=== PATIENT | male | born 1990 | race Hispanic/Latino ===

== ENCOUNTER 2017-02-10 00:51 | Emergency (ER) | payer OTHER ==
[~2017-02-10 00:51] MED LIST: NOMED
[2017-02-10 01:12] VITALS: BP 133/71; PULSE 86; RESP 14; O2SAT 95
[2017-02-10] MEDS ORDERED: 0.9% Sodium Chloride 1,000 ML IV ONE (01:50)
[2017-02-10] MEDS ORDERED: Ondansetron 2 mg/mL 2 mL Inj IVPUSH ONE (01:50)
--- NOTE | 2017-02-10 01:58 | ED.REPORT ---
HPI-General Illness Date of Service Feb 10, 2017 ED Provider: Raz Love MD Palomo Funes is a 26 year old man with a PMH of appendicitis who presents with a 6 hour history of nausea vomiting and diarrhea following ingestion of reheated left over stir downey provided by his boss at work. He states that minutes after consuming the stir downey he began to feel nauseous, and within an hour was acutely suffering from diarrhea and vomiting. He states that prior to this he was in his usual state of health. Nursing Notes Chief Complaint: General Complaint Nursing Notes Reviewed: Yes Allergies: Coded Allergies: No Known Allergies (Unverified Allergy, Unknown, 02/10/17) Scheduled PRN Ondansetron ODT (Zofran ODT) 4 Mg Tablet 4 MG PO Q4H PRN PRN For Nausea Miscellaneous Medications No Historical Medication (No Historical Medication) Ea General Time Seen by MD: 01:45 Chief Complaint Diarrhea, Vomiting Hx Obtained From: Patient Sudden in Onset?: Yes Onset Occurred: 5 - 8 hours ago Symptom Duration: Since onset Context: Occurred at: Workplace Recent Healthcare: No recent doctor visit Similar Sx Previous: No Past Medical History Past Medical History Appendicitis with appendectomy Review of Systems Full Review of Systems GI: Reports: Diarrhea, Nausea, Vomiting Complete sys rev & neg: except as marked. Physical Exam Gen: A/O x3 pleasant cooperative male in mild acute distress secondary to GI upset Neck: Supple, Full ROM, no lymphadenopathy HEENT: PERRL, EOMI, no scleral icterus CV: RRR, no murmurs rubs or gallops Resp: Lungs CTA BL, no wheezing rales or rhonchi Abdomen: Soft, mildly tender to palpation in epigastric region, hyperactive BS throughout, no organomegally Extr: No cyanosis clubbing or edema Neuro: CN 2-12 grossly intact, no focal neurologic deficit. Vital Signs Vital Signs Date Time Temp Pulse Resp B/P Pulse Ox O2 Delivery O2 Flow Rate FiO2 02/10/17 02:54 79 16 125/73 98 Room Air 02/10/17 01:12 37.1 86 14 133/71 95 Initial VS: Reviewed, Vital signs normal Re-Eval/Medical Decision Med Decision/Clinical Course Patient with abrupt onset N/V/D following consumption of reheated left over stir downey at work. Likely food poisoning from pre-formed toxins. Patient given Zofran, Immodium, and 1 L NS resulting in improvement of symptoms. Patient was discharged home with follow up instructions and return precautions. Counseled Regarding: Diagnosis, Need for follow-up, When/why to return to ED Discharge & Departure Shift Change Sign-Out Patient Care Transferred: No Discussed Complaint(s): Yes Response to Therapy: Improved Primary Impression: Food poisoning Disposition: Home Discharge Condition All VS Reviewed: Yes Condition: Stable Patient Instructions: Food Poisoning (ED) Additional Instructions: It is most likely that you are suffering from food poisoning from the stir downey you consumed at work. The good news is that food poisoning symptoms are generally quick to come on and quick to leave. I suspect that you will be feeling much better tomorrow. However, if you are not feeling better in the next 2-3 days the stir downey may have been a false lead and you could have contracted a viral gastro-enteritis, which is a virus that affects the digestive tract. Either way you should drink plenty of water and get some rest until you feel better. If your symptoms fail to improve in 72 hours, your diarrhea or vomit becomes bloody or there is so much of it that you feel dehydrated please go to the urgent care or return to the ER for further evaluation. Referrals: NOPCP (PCP) Attending Statement The patient was seen and examined together with Dr. Luke Hilliard and I agree with the history, exam and plan as outlined in the note above. Luke Hilliard DO Feb 10, 2017 01:58 Raz Love MD Feb 10, 2017 05:35
[2017-02-10] MEDS ORDERED: ONDA4TAB9 PO (02:47)
[2017-02-10 02:54] VITALS: BP 125/73; PULSE 79; RESP 16; O2SAT 98
== END 2017-02-10 02:49 | disposition home or self-care (01) ==
LOC: SED 00:51
DX: T62.91XA Toxic effect of unspecified noxious substance eaten as food, accidental (unintentional), initial encounter (principal); R11.2 Nausea with vomiting, unspecified; R19.7 Diarrhea, unspecified; Y92.59 Other trade areas as the place of occurrence of the external cause; Y99.8 Other external cause status
CPT/HCPCS: 96361; 96374; 99284; J2405; J7030

== ENCOUNTER 2017-05-26 02:51 | Emergency (ER) | payer OTHER ==
[~2017-05-26] VITALS: Ht 177.8 cm; Wt 113.6 kg
[~2017-05-26 02:51] MED LIST changes: +ONDA4TAB9 PO
[2017-05-26 02:53] VITALS: BP 152/71; PULSE 86; RESP 16; O2SAT 99
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
== END 2017-05-26 03:40 | disposition home or self-care (01) ==
LOC: SED 02:51
DX: S00.83XA Contusion of other part of head, initial encounter (principal); S06.0X0A Concussion without loss of consciousness, initial encounter; W39.XXXA Discharge of firework, initial encounter; Y93.89 Activity, other specified; Y92.9 Unspecified place or not applicable; Y99.8 Other external cause status; F17.200 Nicotine dependence, unspecified, uncomplicated